=== PATIENT | male | born 1970 | race Caucasian/White ===

== ENCOUNTER 2024-07-12 09:28 | Emergency (ER) | payer OTHER ==
[~2024-07-12] VITALS: Ht 170.1 cm; Wt 81.6 kg
[~2024-07-12 09:28] MED LIST: ATIVAN1 MG PO; AVELOX400 MG PO; NAPROSYN500 MG PO
[2024-07-12] MEDS ORDERED: Acetaminophen/Oxycodone 5 MG/325 MG TABLET PO ONE (09:50)
[2024-07-12] MEDS ORDERED: Ketorolac Tromethamine 30 MG/ML VIAL IM ONE (09:50)
[2024-07-12] MEDS ORDERED: MELOXICAM15 MG PO (09:53)
[2024-07-12] MEDS ORDERED: CYCLOBENZAPRINE5 M3 PO (09:53)
== END 2024-07-12 10:24 | disposition home or self-care (01) ==
LOC: ED 09:28
DX: M62.830 Muscle spasm of back (principal); I10 Essential (primary) hypertension

== ENCOUNTER 2025-01-06 08:22 | Emergency (ER) | payer OTHER ==
[~2025-01-06] VITALS: Ht 170.1 cm; Wt 79.4 kg
[~2025-01-06 08:22] MED LIST changes: +CYCLOBENZAPRINE5 M3 PO; +MELOXICAM15 MG PO
[2025-01-06] MEDS ORDERED: Ketorolac Tromethamine 60 MG/2 ML VIAL IM ONE (09:55)
[2025-01-06] MEDS ORDERED: LISINOPRIL 20 MG TAB PO ONE (09:55)
[2025-01-06] MEDS ORDERED: hydroCHLOROthiazide 25 MG TAB PO ONE (09:55)
== END 2025-01-06 13:50 | disposition home or self-care (01) ==
LOC: ED 08:22
DX: S76.012A Strain of muscle, fascia and tendon of left hip, initial encounter (principal); I10 Essential (primary) hypertension; Z91.148 Patient's other noncompliance with medication regimen for other reason; X58.XXXA Exposure to other specified factors, initial encounter; Y93.89 Activity, other specified; Y92.89 Other specified places as the place of occurrence of the external cause; Y99.8 Other external cause status